=== PATIENT | female | born 1980 | race Caucasian/White ===

== ENCOUNTER → 2024-10-11 | Outpatient (CLI) | payer BC, SELFPAY ==
--- NOTE | 2024-10-11 | FLU_PTH ---
PATIENT: CASSIE FOSTER LOC: [facility] U#:[id number] AGE/SX: 44/F ROOM: RE10/11/[address]: Dr. Dianelys Aldridge MD : 1980 BED: DIS: 10/11/2024 SPEC #: [id number] RECD: 10/12/24 10:42 STATUS: ANISA ESCUDERO #: [id number] JOSELYN: 10/11/24 00:[address]: Dianelys Aldridge DEPT: CYTOLOGY RECD BY: Selvin Ritter Tissues: A - Urine Procedures: Special Stain Group II Surgery Specimen Level IV Cytospin Fluid HEADER OPERATION: Not noted PRE-OP DIAGNOSIS: Gross hematuria TISSUE SUBMITTED: A- Urine for cytology DIAGNOSIS CYTOLOGY A. Urine: * No malignant cells identified. CYTOLOGY STUDY Slides are reviewed. CYTOLOGY GROSS A. Received is 35 ml of yellow-cloudy fluid labeled with the patient's name and and designated per the requisition as urine. Submitted for cytology preparation (cytospin x1). Mr 10/12/2024 CPT: 23268
[2024-10-11 17:28] LABS: Cytology, Body Fluid / CSF SEE PATHOLOGY REPORT
== END | disposition home or self-care (01) ==
PROVIDERS: Referring Provider Urology; Visit Provider Urology
DX: R31.0 Gross hematuria (principal)
CPT/HCPCS: 88108; 88305; 88313